=== PATIENT | female | born 1950 | race Caucasian/White ===

== ENCOUNTER 2020-12-06 09:16 | Observation (INO) | payer OTHER, SELFPAY ==
[~2020-12-06] VITALS: Ht 162.6 cm; Wt 85.7 kg
--- NOTE | 2020-12-06 09:17 | NUR ---
PATIENT TAKEN TO ER BED 09 BY DONALD
[2020-12-06 09:29] VITALS: BP 166/64
[2020-12-06] MEDS ORDERED: NACL 0.9% 500 ML IV ONE (09:35)
--- NOTE | 2020-12-06 09:45 | NUR ---
PT taken to CT via [facility].
[2020-12-06 10:41] LABS: BASOPHILS # (AUTO) 0.1 K/uL (0.00-0.22); BASOPHILS % (AUTO) 0.6 % (0.0-2.0); EOSINOPHILS # (AUTO) 0.1 K/uL (0-0.4); EOSINOPHILS % (AUTO) 1.6 % (0.0-4.0); HEMATOCRIT 39.4 % (36-48); HEMOGLOBIN 12.7 g/dL (12.0-16.0); LYMPHOCYTES # (AUTO) 1.5 K/uL (2.5-16.5); LYMPHOCYTES % (AUTO) 17.1 % (20.5-51.1); MEAN CORPUSCULAR HEMOGLOBIN 27 pg (27-31); MEAN CORPUSCULAR HGB CONC 32 g/dL (33-37); MEAN CORPUSCULAR VOLUME 83.2 fL (80-94); MONOCYTES # (AUTO) 0.4 K/uL (0.8-1.0); MONOCYTES % (AUTO) 4.2 % (1.7-9.3); NEUTROPHILS # (AUTO) 6.8 K/uL (1.8-7.7); NEUTROPHILS % (AUTO) 76.5 % (42.2-75.2); PLATELET COUNT (AUTO) 197 K/uL (140-450); RED BLOOD CELL COUNT(AUTO) 4.73 MIL/uL (4.20-5.40); RED CELL DISTRIBUTION WIDTH 16.5 % (11.6-13.7); WHITE BLOOD COUNT (AUTO) 8.9 K/uL (4.8-10.8)
[2020-12-06 10:44] LABS: ALBUMIN 3.4 g/dL (3.4-5.0); ANION GAP 16.1 (8-16); CARBON DIOXIDE 24.9 mmol/L (21-32); CREATININE 0.7 mg/dL (0.6-1.3); MAGNESIUM 1.6 mg/dL (1.8-2.4); PHOSPHORUS 4.1 mg/dL (2.5-4.9); TOTAL BILIRUBIN 0.5 mg/dL (0.0-1.0)
--- NOTE | 2020-12-06 11:30 | NUR ---
70 YEAR OLD FEMALE BIBA FOR COMPLAINS OF DIZZINESS X MORNING. PT STATES SHE ALSO HAS NAUSEA. PT GIVEN GIVEN 4MG ZOFRAN IV PER EMS IN ROUTE. PER EMS PT BP 200/100 PRIOR TO ARRIVAL. PT ARRIVED WITH BP 166/64. PT DENIES NAUSEA. PT AOX4, BREATHING EVEN AND UNLABORED, SKIN WARM AND DRY. BED IN LOWEST POSITION, LOCKED, BED RAIL UPX1. PMH - HTN, DM2, CVA(LEFT SIDED WEAKNESS) ALLERGIES - NKA
[2020-12-06] MEDS ORDERED: METOCLOPRAMIDE 10 MG/2 ML INJ VIAL IVP ONE (12:10)
[2020-12-06] MEDS ORDERED: KETOROLAC 15 MG/ML VIAL IVP ONE (12:10)
[2020-12-06] MEDS ORDERED: ERTU5TAB PO (12:20)
[2020-12-06] MEDS ORDERED: METF500T PO (12:20)
[2020-12-06] MEDS ORDERED: MONT10TA35 PO (12:20)
[2020-12-06] MEDS ORDERED: CARV12.5 PO (12:20)
[2020-12-06] MEDS ORDERED: LOSA100T1 PO (12:20)
[2020-12-06] MEDS ORDERED: ACT30 PO (12:20)
[2020-12-06] MEDS ORDERED: ASPI-1822 PO (12:20)
[2020-12-06] MEDS ORDERED: DULO30EC PO (12:20)
[2020-12-06] MEDS ORDERED: VITA-16 PO (12:20)
[2020-12-06] MEDS ORDERED: PRAV20TA2 PO (12:20)
--- NOTE | 2020-12-06 13:00 | NUR ---
PT ALERT AND AWAKE, BREATHING EVEN AND UNLABORED. NO DISTRESS NOTED.
[2020-12-06] MEDS ORDERED: HYDROcodone/APAP 5/325 MG 1 TAB TAB PO PRN (13:50)
[2020-12-06] MEDS ORDERED: MAG SULF 2000 MG/WATER PREMIX 50 ML IV PRN (13:50)
[2020-12-06] MEDS ORDERED: KCL 20 MEQ/WATER INJ PREMIX 200 ML IV PRN (13:50)
[2020-12-06] MEDS ORDERED: MAGNESIUM OXIDE 400 MG TAB PO PRN (13:50)
[2020-12-06] MEDS ORDERED: POTASSIUM CHLORIDE 10 MEQ TABER PO PRN (13:50)
[2020-12-06] MEDS ORDERED: ACETAMINOPHEN 325 MG TAB PO PRN (13:50)
[2020-12-06] MEDS ORDERED: ONDANSETRON 4 MG/2 ML VIAL IVP PRN (13:50)
--- NOTE | 2020-12-06 14:24 | NUR ---
Patient will be admitted to care of Dr Turner. Admited to Tele. Will go to room 115A. Belongings list completed. Report to Deborah POTTS.
[2020-12-06 14:39] VITALS: BP 138/48
--- NOTE | 2020-12-06 14:39 | NUR ---
PT BROUGHT IN FROM THE ED ON A GURNEY FOR HTN CRISIS PT BP UPON ARRIVAL IS 138/48, 80 HR, 98.6, 96, 18. PT COMPLAINS OF DIZZINESS UPON STANDING, WITH LEFT SIDED WEAKNESS DUE TO HX OF CVA IN 2011. PT SKIN INTACT WITH A RIGHT HAND 20 GAUGE. PT IS ALERT AND ORIENTED X4. PT SPEAKS ENGLISH. PT IS SR ON TELE MONITOR. PT HAS NO COMPLAINTS OF PAIN AT THIS TIME. ALL SAFETY MEASURES IN PLACE, CALL LIGHT WITHIN REACH. WILL CONTINUE TO MONITOR.
--- NOTE | 2020-12-06 14:47 | NUR ---
Note anne in EDM - 12/06/20 at 1448 by SHERRON Patient will be admitted to care of Dr Turner. Admited to Tele. Will go to room 115. Belongings list completed. Report to Deborah POTTS.
--- NOTE | 2020-12-06 16:34 | NUR ---
PT NEEDS TO USE THE RESTROOM. PT REPORTS DIZZINESS UPON STANDING UP. PT BLOOD PRESSURES AFTER SITTING DOWN IS 145/51. SAFETY MEASURES IN PLACE, CALL LIGHT WTIHIN REACH. WILL CONTINUE TO MONITOR.
--- NOTE | 2020-12-06 18:20 | NUR ---
PRN MAG ADMINISTERED PER MD ORDER FOR MAG LEVEL OF 1.6. PT EDUCATION PROVIDED.
--- NOTE | 2020-12-06 19:13 | NUR ---
RECEIVED PATIENT FROM AM SHIFT NURSE FOR CONTINUITY OF CARE. ALERT AND ABLE TO MAKE NEEDS KNOWN. RESPIRATIONS EVEN, UNLABORED. NO S/S RESPIRATORY DISTRESS NOTED. S1/S2 AUSCULTATED. TELE MONITORING. SKIN WARM, DRY. SALINE LOCK TO RIGHT HAND 20G PATEN/INTACT. NO C/O PAIN. NO S/S ACUTE DISTRESS. ABDOMEN SOFT, NONTENDER, NONDISTENDED. BOWEL SOUNDS ACTIVE x4 QUADRANTS. PATIENT IS CONTINENT OF B/B. PLAN OF CARE DISCUSSED. SAFETY PRECAUTIONS IN PLACE. CALL LIGHT IN REACH AT ALL TIMES.
--- NOTE | 2020-12-06 19:13 | NUR ---
PT ENDORSDED OT AUTOMATIC MAINTAINER NURSE FOR CONTINUITY OF CARE. POC DISCUSSED.
[2020-12-06 20:00] VITALS: BP 149/66
[2020-12-06] MEDS: carvediloL 12.5 MG TAB PO SCH (20:57)
[2020-12-06] MEDS ORDERED: MONTELUKAST SODIUM 10 MG TAB PO SCH (21:00)
--- NOTE | 2020-12-06 21:30 | NUR ---
DUE MEDS GIVEN. UPDATED PATIENT'S DAUGHTER ON PLAN OF CARE. PATIENT IS RESTING COMFORTABLY IN BED. NO S/S RESPIRATORY DISTRESS. NO C/O PAIN. CALL LIGHT IN REACH. SAFETY PRECAUTIONS IN PLACE.
--- NOTE | 2020-12-06 23:31 | NUR ---
PATIENT RESTING COMFORTABLY IN BED. NO C/O PAIN. NO S/S ACUTE DISTRESS. CALL LIGHT IN REACH.
[2020-12-07] VITALS: BP 128/47
--- NOTE | 2020-12-07 01:45 | NUR ---
MADE ROUNDS. PATIENT IS ASLEEP. NO S/S ACUTE DISTRESS. CALL LIGHT IN REACH. SAFETY PRECAUTIONS IN PLACE.
--- NOTE | 2020-12-07 03:00 | NUR ---
PATIENT IS ASLEEP. NO S/S ACUTE DISTRESS. CALL LIGHT IN REACH. SAFETY PRECAUTIONS IN PLACE.
[2020-12-07 04:00] VITALS: BP 137/49
--- NOTE | 2020-12-07 05:30 | NUR ---
PATIENT IS ASLEEP. NO S/S ACUTE DISTRESS. CALL LIGHT IN REACH. SAFETY PRECAUTIONS IN PLACE.
[2020-12-07 06:59] LABS: CHOL/HDL RATIO 2.1 (1-4.5); PHOSPHORUS 4.4 mg/dL (2.5-4.9)
[2020-12-07 07:13] LABS: BASOPHILS % (AUTO) 0.4 % (0.0-2.0); EOSINOPHILS # (AUTO) 0.2 K/uL (0-0.4); EOSINOPHILS % (AUTO) 2.4 % (0.0-4.0); HEMATOCRIT 37.3 % (36-48); HEMOGLOBIN 12.3 g/dL (12.0-16.0); LYMPHOCYTES # (AUTO) 1.8 K/uL (2.5-16.5); LYMPHOCYTES % (AUTO) 24.5 % (20.5-51.1); MEAN CORPUSCULAR HEMOGLOBIN 27 pg (27-31); MEAN CORPUSCULAR HGB CONC 33 g/dL (33-37); MEAN CORPUSCULAR VOLUME 82.6 fL (80-94); MONOCYTES # (AUTO) 0.5 K/uL (0.8-1.0); MONOCYTES % (AUTO) 6.7 % (1.7-9.3); NEUTROPHILS # (AUTO) 4.9 K/uL (1.8-7.7); PLATELET COUNT (AUTO) 161 K/uL (140-450); RED BLOOD CELL COUNT(AUTO) 4.52 MIL/uL (4.20-5.40); RED CELL DISTRIBUTION WIDTH 16.5 % (11.6-13.7); WHITE BLOOD COUNT (AUTO) 7.5 K/uL (4.8-10.8)
--- NOTE | 2020-12-07 07:15 | NUR ---
RECEIVED REPORT FROM NIGHT NURSE PT IS SLEEPING, RELAX AND CALM, PT UNDER OBSERVATION, ON ROOM AIR, CONTINENT SKIN INTACT, LAST BOWEL MOVEMENT ON 12/06/20, LAST BLOOD SUGAR 111 MG/DL AT 2100. IV INTACT ON RIGHT HAND SALINE LOCK. AMBULATORY WITH ASSIST AND ON STRICT I& O.SAFETY MEASURES IN PLACE AND CALL LIGHT WITHIN REACH. WILL CONTINUE TO MONITOR..
[2020-12-07 07:23] LABS: ALBUMIN 3.1 g/dL (3.4-5.0); ANION GAP 12.7 (8-16); CARBON DIOXIDE 25.1 mmol/L (21-32); CREATININE 0.8 mg/dL (0.6-1.3); POTASSIUM 3.8 mmol/L (3.5-5.1); TOTAL BILIRUBIN 0.4 mg/dL (0.0-1.0)
[2020-12-07 08:00] VITALS: BP 138/57
[2020-12-07] MEDS: MECLIZINE 25 MG TAB PO SCH ×3 (08:42→16:44)
[2020-12-07] MEDS: carvediloL 12.5 MG TAB PO SCH (08:43)
--- NOTE | 2020-12-07 08:50 | NUR ---
MEDICATION DUE GIVEN VITAL SIGNS CHECK PRIOR TO MEDICATION BP 138/57 NH 71 PT STILL FEELS DIZZY ABLE TO EAT AND NO DISTRESS NOTED. WILL CONTINUE TO MONITOR.
[2020-12-07] MEDS ORDERED: ATORVASTATIN 20 MG TAB PO SCH (09:00)
[2020-12-07] MEDS ORDERED: ASPIRIN 81 MG TAB.CHEW PO SCH (09:00)
[2020-12-07] MEDS ORDERED: DULoxetine 30 MG CAPDR PO SCH (09:00)
[2020-12-07] MEDS ORDERED: DOCUSATE SODIUM 100 MG GELCAP PO SCH (09:00)
[2020-12-07] MEDS ORDERED: LOSARTAN 50 MG TAB PO SCH (09:00)
--- NOTE | 2020-12-07 09:00 | NUR ---
PATIENT HAS BEEN SCREENED AND CATEGORIZED HIGH NUTRITION RISK. PATIENT WILL BE SEEN WITHIN 1-2 DAYS OF ADMISSION. 12/06/2020-12/07/[address]
--- NOTE | 2020-12-07 10:30 | NUR ---
ORTHOSTATIC VITAL SIGNS TAKEN Q3H WHILE PT IS AWAKE. SUPINE V/S BP 122/42 AZ 66 RR 18 TEMP 97 OXYGEN SAT 97%, STANDING V/S: BP 138/59 AZ 71 RR; 18 TEMP; 97.OXYGEN SATURATION; 97%. PT IS STABLE.
--- NOTE | 2020-12-07 10:34 | NUR ---
P.T. NOTES P.T. EVAL COMPLETED; REFER TO EVAL FOR DETAILS; ENDORSED TO NURSING.
[2020-12-07 12:00] VITALS: BP 134/44
--- NOTE | 2020-12-07 13:00 | NUR ---
MEDICATION DUE GIVEN PT IS STABLE AND NO DISTRESS NOTED.
--- NOTE | 2020-12-07 13:34 | NUR ---
ORTHOSTATIC V/S TAKEN SUPINE BP 134/44 W[place] 72 AND STANDING BP 131/37 W[place] 69. NO DIZZINESS NOTED.
[2020-12-07] MEDS ORDERED: MECL-231 PO (14:40)
[2020-12-07] MEDS ORDERED: HYDR-1098 PO (14:41)
--- NOTE | 2020-12-07 15:01 | NUR ---
PT IS BEING DISCHARGED BY DR FALL INFORMED DR MIRNA PRUETT AND SAID OK FOR DISCHARGED AND FOLLOW UP IN 2 WEEKS.
[2020-12-07 16:00] VITALS: BP 139/57
--- NOTE | 2020-12-07 16:46 | NUR ---
MEDICATION DUE GIVEN PT IS STABLE.
--- NOTE | 2020-12-07 17:05 | NUR ---
DISCHARGED INSTRUCTIONS GIVEN TO PT AT BEDSIDE INSTRUCTED TO FOLLOW UP WITH DR PRUETT IN 2 WEEKS AND ENCOURAGED TO CONTINUE MEDICATION AND TO SEEK MEDICAL HELP INCASE OF EMERGENCIES. REMOVED ID BANDS AND IV INTACT AND COMPLETE NO BLEEDING. REMOVED TELEMONITOR AND RETURNED TO TEXT TRANSCRIBER. CHANGED PT OWN CLOTHES PT TOOK ALL HER BELONGINGS AND ESCORTED PT TO FRONT LOBBY VIA WHEEL CHAIR ACCOMPANIED BY HER GRAND DAUGHTER. PT IS DISCHARGED TO HOME PT IS STABLE.
== END 2020-12-07 17:05 | disposition home or self-care (01) ==
LOC: MED 09:16 → MTU 13:53
PROVIDERS: ADMIT Hospitalist; ATTEND Hospitalist
DX: I16.0 Hypertensive urgency (principal); Z20.822 Contact with and (suspected) exposure to COVID-19; R55 Syncope and collapse; R51.9 Headache, unspecified; I10 Essential (primary) hypertension; E11.9 Type 2 diabetes mellitus without complications; E78.5 Hyperlipidemia, unspecified; E83.42 Hypomagnesemia; J45.909 Unspecified asthma, uncomplicated; E66.9 Obesity, unspecified; I69.354 Hemiplegia and hemiparesis following cerebral infarction affecting left non-dominant side; Z90.710 Acquired absence of both cervix and uterus; Z79.84 Long term (current) use of oral hypoglycemic drugs; Z79.899 Other long term (current) drug therapy; Z68.32 Body mass index [BMI] 32.0-32.9, adult
CPT/HCPCS: 36415; 70450; 71045; 80053; 80061; 82948; 83036; 83735; 83880; 84100; 84484; 85025; 87081; 87426; 93005; 93880; 96361; 96372; 96374; 96375; 97163; 99285; G0378; J1644; J1885; J2765; J8597

== ENCOUNTER 2020-12-29 19:35 | Emergency (ER) | payer OTHER ==
[~2020-12-29] VITALS: Ht 157.5 cm; Wt 88.0 kg
[~2020-12-29 19:35] MED LIST: ACT30 PO; ASPI-1822 PO; CARV12.5 PO; DULO30EC PO; ERTU5TAB PO; HYDR-1098 PO; LOSA100T1 PO; MECL-231 PO; METF500T PO; MONT10TA35 PO; PRAV20TA2 PO; VITA-16 PO
[2020-12-29 19:51] VITALS: BP 146/90
--- NOTE | 2020-12-29 19:54 | NUR ---
TO LOBBY A/W BED AMBULATORY
--- NOTE | 2020-12-29 21:07 | NUR ---
PT AMBULATED TO BED 8
--- NOTE | 2020-12-29 21:10 | NUR ---
PT. IS A 70 Y/O FEMALE THAT CAME INTO ED WITH C/O OF LEFT SIDE FACIAL PAIN. PT. STATES "MY LEFT SIDE OF THE FACE FEELS LIKE IT'S SWELLING AND FEELS NUMB BUT I FEEL NO PAIN." PT. ALSO STATES SHE HAS BEEN TAKING MEDICATION OF HYDRALAZINE THAT SHE "FEELS CONTRIBUTES TO THE SWELLING." PT. STATES THAT THE SWELLING STARTED 3 WEEKS AGO AND GRADUALLY STARTED TO PROGRESS. DENIES N/V/D; SKIN IS PINK/WARM/DRY; AAOX4 WITH EVEN AND STEADY GAIT; HR EVEN AND REGULAR; PT DENIES ANY FEVER, CP, SOB, OR COUGH AT THIS TIME; PATIENT STATES PAIN OF 0/10 AT THIS TIME; VSS; PATIENT POSITIONED FOR COMFORT; HOB ELEVATED; BEDRAILS UP X1; BED DOWN. ER MD MADE AWARE OF PT STATUS.
--- NOTE | 2020-12-29 21:58 | NUR ---
Dr. Sahu examining patient.
--- NOTE | 2020-12-29 22:37 | NUR ---
XRAY AND CT AT BEDSIDE.
--- NOTE | 2020-12-29 22:38 | NUR ---
PT TAKEN TO RADIOLOGY
--- NOTE | 2020-12-29 22:50 | NUR ---
PT RETURN FROM RAD
--- NOTE | 2020-12-29 23:06 | NUR ---
LAB AT BEDSIDE
[2020-12-29 23:25] LABS: BASOPHILS % (AUTO) 0.5 % (0.0-2.0); EOSINOPHILS # (AUTO) 0.1 K/uL (0-0.4); EOSINOPHILS % (AUTO) 1.6 % (0.0-4.0); HEMATOCRIT 39.3 % (36-48); HEMOGLOBIN 12.8 g/dL (12.0-16.0); LYMPHOCYTES # (AUTO) 2.1 K/uL (2.5-16.5); LYMPHOCYTES % (AUTO) 25.7 % (20.5-51.1); MEAN CORPUSCULAR HEMOGLOBIN 27 pg (27-31); MEAN CORPUSCULAR HGB CONC 33 g/dL (33-37); MEAN CORPUSCULAR VOLUME 83.5 fL (80-94); MONOCYTES # (AUTO) 0.5 K/uL (0.8-1.0); MONOCYTES % (AUTO) 6.2 % (1.7-9.3); NEUTROPHILS # (AUTO) 5.4 K/uL (1.8-7.7); PLATELET COUNT (AUTO) 217 K/uL (140-450); RED CELL DISTRIBUTION WIDTH 16.4 % (11.6-13.7); WHITE BLOOD COUNT (AUTO) 8.2 K/uL (4.8-10.8)
[2020-12-29 23:43] LABS: ALBUMIN 3.9 g/dL (3.4-5.0); ANION GAP 12.1 (8-16); CARBON DIOXIDE 29.9 mmol/L (21-32); CREATININE 0.8 mg/dL (0.6-1.3); TOTAL BILIRUBIN 0.3 mg/dL (0.0-1.0)
--- NOTE | 2020-12-30 01:15 | NUR ---
Dr. Sahu examining patient.
[2020-12-30] MEDS ORDERED: AMOX-999 PO (01:33)
[2020-12-30 01:43] VITALS: BP 157/65
--- NOTE | 2020-12-30 01:43 | NUR ---
Patient discharged with v/s stable. Written and verbal after care instructions given and explained. Patient alert, oriented and verbalized understanding of instructions. Ambulatory with steady gait. All questions addressed prior to discharge. ID band removed. Patient advised to follow up with PMD. Rx of AUGMENTIN 500-125 TABLET given. Patient educated on indication of medication including possible reaction and side effects. Opportunity to ask questions provided and answered.
== END 2020-12-30 01:43 | disposition home or self-care (01) ==
LOC: MED 19:35
DX: R20.0 Anesthesia of skin (principal); J45.909 Unspecified asthma, uncomplicated; E11.9 Type 2 diabetes mellitus without complications; I11.9 Hypertensive heart disease without heart failure; Z79.899 Other long term (current) drug therapy
CPT/HCPCS: 36415; 70450; 71045; 80053; 84484; 85025; 93005; 99285

== ENCOUNTER 2021-12-07 18:13 | Emergency (ER) | payer OTHER ==
[~2021-12-07] VITALS: Ht 157.5 cm; Wt 93.0 kg
[~2021-12-07 18:13] MED LIST changes: +AMOX-999 PO; +METF-346 PO; -METF500T PO
[2021-12-07 18:34] VITALS: BP 163/81
--- NOTE | 2021-12-07 19:51 | NUR ---
PT AMBULATED TO BED 08
--- NOTE | 2021-12-07 20:55 | NUR ---
PT COUGHING. PROVIDED WATER AND [place]
--- NOTE | 2021-12-07 20:57 | NUR ---
ERMD AT BEDSIDE
[2021-12-07] MEDS ORDERED: ALBUTEROL SULFATE/IPRATROPIU 3 ML SOL IH ONE (21:05)
[2021-12-07] MEDS ORDERED: ACETAMIN/CODEINE 120/12MG-5ML 5 ML UDC PO ONE (21:05)
--- NOTE | 2021-12-07 21:14 | NUR ---
Respiratory Therapist at bedside for respiratory intervention. Patient tolerated .
--- NOTE | 2021-12-07 21:31 | NUR ---
XRAY AT BEDSIDE
--- NOTE | 2021-12-07 22:35 | NUR ---
PT STATES cough x 2 days . pt states headche from cough. pt states she took a "cough pill" but doesnt know the name. pt states cough is productive for mucus. denies blood in mucus. DENIES N/V/D; SKIN IS PINK/WARM/DRY; AAOX4 WITH EVEN AND STEADY GAIT; LUNGS CLEAR BL; HR EVEN AND REGULAR; PT DENIES ANY FEVER and CP . pmh: asthma, dm2, htn rx: see med rec
[2021-12-07] MEDS ORDERED: ALBU0.0912 INH (23:34)
[2021-12-07] MEDS ORDERED: ROBAC PO (23:34)
[2021-12-07] MEDS ORDERED: predniSONE 20 MG TAB PO ONE (23:35)
[2021-12-07 23:50] VITALS: BP 174/105
--- NOTE | 2021-12-07 23:50 | NUR ---
Patient discharged with v/s stable. Written and verbal after care instructions given and explained. Patient alert, oriented and verbalized understanding of instructions. Ambulatory with steady gait. All questions addressed prior to discharge. ID band removed. Patient advised to follow up with PMD. Rx of albuterol and guaifesin-codeine syrup given. Opportunity to ask questions provided and answered.
--- NOTE | 2021-12-08 00:41 | NUR ---
The patient's care was reviewed and supervised by Nichole Whaley RN.
== END 2021-12-07 23:50 | disposition home or self-care (01) ==
LOC: MED 18:13
DX: J20.9 Acute bronchitis, unspecified (principal); Z20.822 Contact with and (suspected) exposure to COVID-19; J45.909 Unspecified asthma, uncomplicated; I10 Essential (primary) hypertension; E11.9 Type 2 diabetes mellitus without complications; Z86.73 Personal history of transient ischemic attack (TIA), and cerebral infarction without residual deficits; Z79.4 Long term (current) use of insulin; Z79.82 Long term (current) use of aspirin; Z79.899 Other long term (current) drug therapy
CPT/HCPCS: 71045; 87426; 87804; 94640; 99285; Q0092

== ENCOUNTER 2023-10-17 07:40 | Emergency (ER) | payer OTHER ==
[~2023-10-17] VITALS: Ht 157.5 cm; Wt 90.7 kg
[~2023-10-17 07:40] MED LIST changes: +ALBU0.0912 INH; +LOSA-272 PO; -LOSA100T1 PO; +MONT-72 PO; -MONT10TA35 PO; +ROBAC PO
[2023-10-17 07:46] VITALS: BP 163/87; PULSE 92; RESP 18; TEMP 97.7; O2SAT 99
[2023-10-17] MEDS: ACETAMINOPHEN 325 MG TAB PO ONE (08:23)
[2023-10-17 08:36] LABS: BASOPHILS % (AUTO) 0.6 % (0.0-2.0); EOSINOPHILS # (AUTO) 0.2 K/uL (0-0.4); HEMATOCRIT 34.9 % (36-48); HEMOGLOBIN 11.6 g/dL (12.0-16.0); LYMPHOCYTES # (AUTO) 1.7 K/uL (2.5-16.5); LYMPHOCYTES % (AUTO) 25.5 % (20.5-51.1); MEAN CORPUSCULAR HEMOGLOBIN 28 pg (27-31); MEAN CORPUSCULAR HGB CONC 33 g/dL (33-37); MONOCYTES # (AUTO) 0.4 K/uL (0.8-1.0); MONOCYTES % (AUTO) 6.4 % (1.7-9.3); NEUTROPHILS # (AUTO) 4.3 K/uL (1.8-7.7); NEUTROPHILS % (AUTO) 64.5 % (42.2-75.2); PLATELET COUNT (AUTO) 267 K/uL (140-450); RED BLOOD CELL COUNT(AUTO) 4.21 MIL/uL (4.20-5.40); RED CELL DISTRIBUTION WIDTH 16.5 % (11.6-13.7); WHITE BLOOD COUNT (AUTO) 6.6 K/uL (4.8-10.8)
[2023-10-17 08:44] LABS: ANION GAP 13.8 (8-16); CARBON DIOXIDE 26.5 mmol/L (21-32); CHLORIDE 104 mmol/L (98-107); CREATININE 1.1 mg/dL (0.6-1.3); GLUCOSE 142 mg/dL (74-106); POTASSIUM 4.3 mmol/L (3.5-5.1); SODIUM SERUM 140 mmol/L (136-145); UREA NITROGEN, BLOOD 12 mg/dL (7-18)
[2023-10-17 08:47] LABS: INR 1.03 (0.8-1.2); PARTIAL THROMBOPLASTIN TIME 28.3 secs (22-35.6); PROTHROMBIN TIME 10.8 secs (10.8-13.4)
[2023-10-17 08:51] LABS: ALANINE AMINOTRANSFERASE 14 U/L (12-78); ALBUMIN 3.5 g/dL (3.4-5.0); ALKALINE PHOSPHATASE 95 U/L (50-136); ASPARTATE AMINOTRANSFERASE 12 U/L (15-37); BILIRUBIN,DIRECT 0.1 mg/dL (0.0-0.3); TOTAL BILIRUBIN 0.4 mg/dL (0.0-1.0); TOTAL PROTEIN, SERUM 7.2 g/dL (6.4-8.2)
[2023-10-17 10:39] LABS: APPEARANCE,URINE CLEAR (CLEAR); BILIRUBIN,URINE NEGATIVE (NEGATIVE); BLOOD, URINE NEGATIVE (NEGATIVE); COLOR,URINE YELLOW (YELLOW); LEUKOCYTE ESTERASE ,URINE 2+ (NEGATIVE); NITRITE, URINE NEGATIVE (NEGATIVE); PROTEIN,URINE NEGATIVE (NEGATIVE); UGLUCOSE NEGATIVE (NEGATIVE); UROBILINOGEN,URINE 0.2 EU/dL (0.2 - 1)
[2023-10-17 10:48] LABS: BACTERIA,URINE FEW /HPF (None Seen); SQUAMOUS EPITHELIAL CELL,UR 4-10 (MOD) /LPF (0-3 (FEW))
[2023-10-17] MEDS ORDERED: NITR100C7 PO (11:16)
[2023-10-17 11:33] VITALS: BP 137/54; PULSE 68; RESP 18; TEMP 97.7; O2SAT 99
== END 2023-10-17 11:30 | disposition home or self-care (01) ==
LOC: MED 07:40
DX: S00.83XA Contusion of other part of head, initial encounter (principal); N39.0 Urinary tract infection, site not specified; E11.9 Type 2 diabetes mellitus without complications; J45.909 Unspecified asthma, uncomplicated; I10 Essential (primary) hypertension; M25.561 Pain in right knee; Z79.84 Long term (current) use of oral hypoglycemic drugs; Z79.82 Long term (current) use of aspirin; Z79.899 Other long term (current) drug therapy; W18.39XA Other fall on same level, initial encounter; Y93.89 Activity, other specified; Y92.89 Other specified places as the place of occurrence of the external cause; Y99.8 Other external cause status
CPT/HCPCS: 36415; 70450; 70486; 71045; 72170; 73562; 80048; 80076; 81001; 82948; 83880; 84484; 85025; 85610; 85730; 87086; 93005; 99285

== ENCOUNTER 2024-03-10 13:08 | Inpatient (IN) | payer OTHER ==
[~2024-03-10] VITALS: Ht 157.5 cm; Wt 95.3 kg
[~2024-03-10 13:08] MED LIST changes: +NITR100C7 PO
[2024-03-10 13:20] VITALS: BP 144/41; PULSE 97; RESP 20; TEMP 98; O2SAT 99
[2024-03-10 13:56] LABS: BASOPHILS % (AUTO) 0.2 % (0.0-2.0); EOSINOPHILS # (AUTO) 0.1 K/uL (0-0.4); EOSINOPHILS % (AUTO) 1.2 % (0.0-4.0); HEMATOCRIT 32.1 % (36-48); HEMOGLOBIN 10.4 g/dL (12.0-16.0); LYMPHOCYTES # (AUTO) 1.5 K/uL (2.5-16.5); LYMPHOCYTES % (AUTO) 18.1 % (20.5-51.1); MEAN CORPUSCULAR HEMOGLOBIN 28 pg (27-31); MEAN CORPUSCULAR HGB CONC 32 g/dL (33-37); MEAN CORPUSCULAR VOLUME 85.1 fL (80-94); MONOCYTES # (AUTO) 0.5 K/uL (0.8-1.0); MONOCYTES % (AUTO) 6.3 % (1.7-9.3); NEUTROPHILS % (AUTO) 74.2 % (42.2-75.2); PLATELET COUNT (AUTO) 279 K/uL (140-450); RED BLOOD CELL COUNT(AUTO) 3.77 MIL/uL (4.20-5.40); RED CELL DISTRIBUTION WIDTH 15.8 % (11.6-13.7); WHITE BLOOD COUNT (AUTO) 8.1 K/uL (4.8-10.8)
[2024-03-10 14:20] LABS: ANION GAP 13.5 (8-16); CALCIUM 8.5 mg/dL (8.5-10.1); CARBON DIOXIDE 20.8 mmol/L (21-32); CHLORIDE 101 mmol/L (98-107); CREATININE 1.6 mg/dL (0.6-1.3); GLUCOSE 123 mg/dL (74-106); SODIUM SERUM 129 mmol/L (136-145); UREA NITROGEN, BLOOD 13 mg/dL (7-18)
[2024-03-10 14:22] LABS: INR 1.06 (0.8-1.2); PARTIAL THROMBOPLASTIN TIME 25.4 secs (22-35.6); PROTHROMBIN TIME 11.1 secs (10.8-13.4)
[2024-03-10 14:28] LABS: POTASSIUM 6.3 mmol/L (3.5-5.1)
[2024-03-10] MEDS ORDERED: NITROGLYCERIN 0.4 MG TAB SL ONE (14:39)
[2024-03-10] MEDS: NITROGLYCERIN 0.4 MG TAB SL ONE (14:40)
[2024-03-10] MEDS: DEXTROSE 50% 50 ML SYR IVP ONE (14:58)
[2024-03-10] MEDS: INSULIN REGULAR, HUMAN 100 UNIT/ML VIAL IV ONE (15:01)
[2024-03-10] MEDS: CALCIUM GLUC 1 GM/50 mL NS BAG 50 ML IV ONE (15:04)
[2024-03-10] MEDS: SODIUM ZIRCONIUM CYCLOSILICATE 10 GM POWD.PACK PO ONE (15:11)
[2024-03-10] MEDS ORDERED: SPIR25TA20 PO (16:00)
[2024-03-10] MEDS ORDERED: ONDANSETRON 4 MG/2 ML VIAL IVP PRN (16:10)
[2024-03-10] MEDS ORDERED: ZOLPIDEM 5 MG TAB PO PRN (16:10)
[2024-03-10] MEDS ORDERED: DEXTROSE 50% 50 ML SYR IVP PRN (16:10)
[2024-03-10] MEDS ORDERED: HYDROcodone/APAP 5/325 MG 1 TAB TAB PO PRN (16:10)
[2024-03-10] MEDS ORDERED: ACETAMINOPHEN 325 MG TAB PO PRN (16:10)
[2024-03-10] MEDS: BLOOD GLUCOSE MONITORING 1 DEV DEV FS SCH (16:30)
[2024-03-10 18:19] LABS: ANION GAP 11.4 (8-16); CALCIUM 8.7 mg/dL (8.5-10.1); CARBON DIOXIDE 25.3 mmol/L (21-32); CHLORIDE 104 mmol/L (98-107); CREATININE 1.5 mg/dL (0.6-1.3); GLUCOSE 123 mg/dL (74-106); POTASSIUM 5.7 mmol/L (3.5-5.1); SODIUM SERUM 135 mmol/L (136-145); UREA NITROGEN, BLOOD 14 mg/dL (7-18)
[2024-03-10] MEDS ORDERED: ALBU10.7 (18:34)
[2024-03-10 20:02] VITALS: PULSE 79; RESP 18; O2SAT 99
[2024-03-10] MEDS: MONTELUKAST SODIUM 10 MG TAB PO SCH (21:02)
[2024-03-10] MEDS: INSULIN LISPRO SLIDING SCALE 100 UNITS/ML VIAL SUBQ PRN (21:16)
[2024-03-10 23:55] VITALS: PULSE 80
[2024-03-11] VITALS (8 sets, daily range): BP systolic 124–147; BP diastolic 44–67; PULSE 72–93; RESP 18–20; TEMP 96.8–98.8; O2SAT 96–100
[2024-03-11 05:11] LABS: BASOPHILS % (AUTO) 0.4 % (0.0-2.0); EOSINOPHILS # (AUTO) 0.1 K/uL (0-0.4); EOSINOPHILS % (AUTO) 1.9 % (0.0-4.0); HEMATOCRIT 31.1 % (36-48); HEMOGLOBIN 10.2 g/dL (12.0-16.0); LYMPHOCYTES # (AUTO) 1.6 K/uL (2.5-16.5); LYMPHOCYTES % (AUTO) 20.5 % (20.5-51.1); MEAN CORPUSCULAR HEMOGLOBIN 28 pg (27-31); MEAN CORPUSCULAR HGB CONC 33 g/dL (33-37); MEAN CORPUSCULAR VOLUME 84.8 fL (80-94); MONOCYTES # (AUTO) 0.6 K/uL (0.8-1.0); MONOCYTES % (AUTO) 7.3 % (1.7-9.3); NEUTROPHILS # (AUTO) 5.3 K/uL (1.8-7.7); NEUTROPHILS % (AUTO) 69.9 % (42.2-75.2); PLATELET COUNT (AUTO) 251 K/uL (140-450); RED BLOOD CELL COUNT(AUTO) 3.67 MIL/uL (4.20-5.40); RED CELL DISTRIBUTION WIDTH 15.6 % (11.6-13.7); WHITE BLOOD COUNT (AUTO) 7.6 K/uL (4.8-10.8)
[2024-03-11 05:45] LABS: ALANINE AMINOTRANSFERASE 21 U/L (12-78); ALBUMIN 3.3 g/dL (3.4-5.0); ALKALINE PHOSPHATASE 107 U/L (50-136); ANION GAP 11.1 (8-16); ASPARTATE AMINOTRANSFERASE 14 U/L (15-37); CALCIUM 8.8 mg/dL (8.5-10.1); CARBON DIOXIDE 26.3 mmol/L (21-32); CHLORIDE 104 mmol/L (98-107); CREATININE 1.4 mg/dL (0.6-1.3); GLUCOSE 84 mg/dL (74-106); MAGNESIUM 2.1 mg/dL (1.8-2.4); PHOSPHORUS 5.2 mg/dL (2.5-4.9); POTASSIUM 5.4 mmol/L (3.5-5.1); SODIUM SERUM 136 mmol/L (136-145); TOTAL BILIRUBIN 0.3 mg/dL (0.0-1.0); TOTAL PROTEIN, SERUM 6.8 g/dL (6.4-8.2); UREA NITROGEN, BLOOD 15 mg/dL (7-18)
[2024-03-11] MEDS: MEDS-TO-BEDS MC SCH (08:35)
[2024-03-11] MEDS: DOCUSATE SODIUM 100 MG GELCAP PO SCH (08:36)
[2024-03-11] MEDS: ASPIRIN 81 MG TAB.CHEW PO SCH (08:36)
[2024-03-11] MEDS: SODIUM ZIRCONIUM CYCLOSILICATE 10 GM POWD.PACK PO ONE (16:20)
[2024-03-11] MEDS: SODIUM ZIRCONIUM CYCLOSILICATE 10 GM POWD.PACK ONE (17:39)
[2024-03-11] MEDS: NACL 0.45% 1,000 ML IV SCH (17:45)
[2024-03-11] MEDS: NAPROXEN 500 MG TAB PO SCH (18:21)
[2024-03-12] VITALS: BP 121/74; PULSE 87; RESP 18; TEMP 97.4; O2SAT 98
[2024-03-12 00:15] VITALS: PULSE 82
[2024-03-12 03:40] VITALS: O2SAT 99
[2024-03-12 04:00] VITALS: BP 134/66; PULSE 83; PULSE 85; RESP 18; TEMP 97.1; O2SAT 97
[2024-03-12 08:00] VITALS: BP 120/35; PULSE 69; PULSE 70; RESP 18; RESP 19; TEMP 97.6; O2SAT 97; O2SAT 98
[2024-03-12 08:58] LABS: BASOPHILS # (AUTO) 0.1 K/uL (0.00-0.22); BASOPHILS % (AUTO) 1.2 % (0.0-2.0); EOSINOPHILS # (AUTO) 0.2 K/uL (0-0.4); EOSINOPHILS % (AUTO) 3.4 % (0.0-4.0); HEMATOCRIT 31.4 % (36-48); HEMOGLOBIN 10.4 g/dL (12.0-16.0); LYMPHOCYTES # (AUTO) 1.2 K/uL (2.5-16.5); LYMPHOCYTES % (AUTO) 22.7 % (20.5-51.1); MEAN CORPUSCULAR HEMOGLOBIN 28 pg (27-31); MEAN CORPUSCULAR HGB CONC 33 g/dL (33-37); MEAN CORPUSCULAR VOLUME 84.2 fL (80-94); MONOCYTES # (AUTO) 0.4 K/uL (0.8-1.0); MONOCYTES % (AUTO) 8.1 % (1.7-9.3); NEUTROPHILS # (AUTO) 3.5 K/uL (1.8-7.7); NEUTROPHILS % (AUTO) 64.6 % (42.2-75.2); PLATELET COUNT (AUTO) 253 K/uL (140-450); RED BLOOD CELL COUNT(AUTO) 3.73 MIL/uL (4.20-5.40); RED CELL DISTRIBUTION WIDTH 15.7 % (11.6-13.7); WHITE BLOOD COUNT (AUTO) 5.4 K/uL (4.8-10.8)
[2024-03-12 09:52] LABS: ALANINE AMINOTRANSFERASE 22 U/L (12-78); ALBUMIN 3.2 g/dL (3.4-5.0); ALKALINE PHOSPHATASE 105 U/L (50-136); ANION GAP 11.5 (8-16); ASPARTATE AMINOTRANSFERASE 15 U/L (15-37); CALCIUM 8.3 mg/dL (8.5-10.1); CARBON DIOXIDE 24.1 mmol/L (21-32); CHLORIDE 103 mmol/L (98-107); CREATININE 1.4 mg/dL (0.6-1.3); GLUCOSE 171 mg/dL (74-106); PHOSPHORUS 4.6 mg/dL (2.5-4.9); POTASSIUM 4.6 mmol/L (3.5-5.1); SODIUM SERUM 134 mmol/L (136-145); TOTAL BILIRUBIN 0.4 mg/dL (0.0-1.0); TOTAL PROTEIN, SERUM 6.5 g/dL (6.4-8.2); UREA NITROGEN, BLOOD 17 mg/dL (7-18)
[2024-03-12] MEDS ORDERED: FURO-572 PO (11:21)
[2024-03-12 12:14] VITALS: BP 120/35; PULSE 70; RESP 18; TEMP 97.6
== END 2024-03-12 12:55 | disposition home or self-care (01) | DRG 206 ==
LOC: MED 13:08 → MTU 16:06
PROVIDERS: ADMIT Hospitalist; ATTEND Hospitalist
DX: M94.0 Chondrocostal junction syndrome [Tietze] (principal); I69.954 Hemiplegia and hemiparesis following unspecified cerebrovascular disease affecting left non-dominant side; E11.22 Type 2 diabetes mellitus with diabetic chronic kidney disease; I12.9 Hypertensive chronic kidney disease with stage 1 through stage 4 chronic kidney disease, or unspecified chronic kidney disease; J44.9 Chronic obstructive pulmonary disease, unspecified; E78.5 Hyperlipidemia, unspecified; E87.5 Hyperkalemia; N18.32 Chronic kidney disease, stage 3b; E78.00 Pure hypercholesterolemia, unspecified; E66.9 Obesity, unspecified; Z68.38 Body mass index [BMI] 38.0-38.9, adult; Z79.51 Long term (current) use of inhaled steroids; Z79.84 Long term (current) use of oral hypoglycemic drugs; Z79.899 Other long term (current) drug therapy
CPT/HCPCS: 36415; 71045; 71275; 76641; 80048; 80053; 82948; 83735; 83880; 84100; 84484; 85025; 85610; 85730; 87081; 93005; 93970; 96374; 96375; 97163-GP; 97530; 99291; J0610; J1644; J1815; Q0092; Q9967